=== PATIENT | male | born 1970 | race Caucasian/White ===

== ENCOUNTER → 2016-12-13 | Outpatient (CLI) | payer OTHER | END | disposition home or self-care (01) | LOC: CFH 12:13 | PROVIDERS: ATTEND Neurological Surgery | DX: Z13.820 Encounter for screening for osteoporosis (principal); M85.88 Other specified disorders of bone density and structure, other site; M51.34 Other intervertebral disc degeneration, thoracic region; M41.84 Other forms of scoliosis, thoracic region; Q76.414 Congenital kyphosis, thoracic region; J98.9 Respiratory disorder, unspecified | CPT/HCPCS: 72082; 77080; 94060; 94726; 94729 ==

== ENCOUNTER → 2017-05-14 | Outpatient (CLI) | payer OTHER | END | disposition home or self-care (01) | LOC: RAD 12:10 | PROVIDERS: ATTEND Neurological Surgery | DX: M41.84 Other forms of scoliosis, thoracic region (principal); M41.86 Other forms of scoliosis, lumbar region | CPT/HCPCS: 72082 ==

== ENCOUNTER → 2017-06-25 | Outpatient (CLI) | payer OTHER | LOC: RAD 13:33 | PROVIDERS: ATTEND Neurological Surgery | DX: M41.84 Other forms of scoliosis, thoracic region (principal) | CPT/HCPCS: 72082 ==

== ENCOUNTER → 2017-09-25 | Outpatient (CLI) | payer OTHER | END | disposition home or self-care (01) | LOC: RAD 20:11 | PROVIDERS: ATTEND Neurological Surgery | DX: M41.84 Other forms of scoliosis, thoracic region (principal) | CPT/HCPCS: 72082 ==

== ENCOUNTER → 2018-05-03 | Outpatient (CLI) | payer OTHER ==
[~2018-05-03] MED LIST: ATROPINE SYRINGE 0.1 MG/ML, 10ML ONE; DOBUTAMINE/D5W PMX 250 ML ONE
== END | disposition home or self-care (01) ==
LOC: RAD 10:43
PROVIDERS: ATTEND Neurological Surgery
DX: M51.34 Other intervertebral disc degeneration, thoracic region (principal); M43.25 Fusion of spine, thoracolumbar region
CPT/HCPCS: 72072